=== PATIENT | female | born 1990 | race Caucasian/White ===

== ENCOUNTER → 2023-06-27 11:41 | Outpatient (REF) | payer OTHER, SELFPAY | LOC: RAD 11:41 | PROVIDERS: ATTENDING PHYSICIAN Nurse Practitioner Family; FAMILY PHYSICIAN Internal Medicine | DX: O26.851 Spotting complicating pregnancy, first trimester (principal) | CPT/HCPCS: 76801; 76817 ==

== ENCOUNTER 2023-06-27 12:47 | Emergency (ER) | payer OTHER, SELFPAY ==
[2023-06-27 12:49] VITALS: BP 119/83
[2023-06-27 13:15] LABS: % Basophils 0.4 % (0-2); % Immature Granulocytes 0.1 % (0-0.5); % Monocytes 8.7 % (1.7-9.3); % Neutrophils 61.8 % (42.2-75.2); Absolute Eosinophils 0.2 10^3/uL (0-0.7); Absolute Monocytes 0.7 10^3/uL (0.1-0.6); Absolute Neutrophils 4.7 10^3/uL (1.4-6.5); Hematocrit 39.2 % (37.0-47.0); Hemoglobin 13.2 g/dL (12.0-16.0); Mean Corp Hgb Conc. 33.7 g/dL (33.0-37.0); Mean Corpuscular Hgb 28.8 pg (27.0-31.0); Mean Corpuscular Volume 85.6 fL (81.0-99.0); Mean Platelet Volume 10.4 fL (7.4-10.4); Nucleated Red Blood Cells % 0 %; Platelet Count 243 10^3/uL (130-400); Red Blood Cell Count 4.58 10^6/uL (4.20-5.40); Red Cell Dist. Width 13.2 % (11.5-14.5); White Blood Cell Count 7.6 10^3/uL (4.8-10.8)
--- NOTE | 2023-06-27 14:16 | ED.GENMED ---
History of Present Illness
General
Chief Complaint: Vaginal Bleeding
Time Seen by Provider: 06/27/23 14:15
Travel History
Have you had any contact with someone who has COVID-19?: No
Do you have any symptoms of coronavirus? Fever > 100 degrees, chills, cough, shortness of breath, sore throat, loss of taste or smell, muscle aches, or headache?: No
History of Present Illness
History of Present Illness:
32-year-old female presents the emergency department for evaluation of vaginal bleeding with clots that began last night. G1, P0, currently 8 weeks gestational age. Denies any abdominal or pelvic pain. Bleeding is substantially improved as of
this morning. Went for an outpatient ultrasound at the direction of her TAB CUTTER this morning that showed no intrauterine highly concerning for completed miscarriage. Was directed here by the TAB CUTTER for lab work
Past History
Past History
ED Past Medical History: None
ED Past Surgical History: Other (N/A)
Social History
Tobacco: Non-smoker
Alcohol: Occasional
Personal: Single
Living: with family
Employment: Employed
Review of Systems
Review of Systems
Allergies reviewed?: Yes
All Other Systems: ROS reviewed and negative except as documented in HPI and ROS
Phy Exam
Physical Exam
Physical Exam:
GEN: Well appearing, NAD, WDWN
HEENT: Oral mucosa moist, no scleral icterus
Cardiac: Regular rate
Lung: No respiratory distress, no tachypnea
MSK: No gross deformity or injuries
Skin: Good color, no pallor or jaundice, no rashes
Neuro: AO x3, moves all extremities freely
Psych: Calm, cooperative
Course
Orders/Labs/Results
Orders:
Orders
06/27/23 12:57
Type+Screen Urgent
HCG, Beta Quantitative [Beta HCG Quantitative] Urgent
Is this a screen?: No
06/27/23 12:58
CBC/With Diff [Complete Blood Count/With Diff] Urgent
Abnormal Lab Results
06/27/23
12:58
Absolute Monos (auto) 0.7 H 10^3/uL
(0.1-0.6)
06/27/23 12:58
Vital Signs
Initial and Last Documented VS:
Initial Vital Signs
Temp Pulse Resp BP Pulse Ox
98.4 F 91 18 119/83 100
06/27/23 12:49 06/27/23 12:49 06/27/23 12:49 06/27/23 12:49 06/27/23 12:49
Last Documented Vital Signs
Temp Pulse Resp BP Pulse Ox
98.4 F 91 18 119/83 100
06/27/23 12:49 06/27/23 12:49 06/27/23 12:49 06/27/23 12:49 06/27/23 12:49
MDM/Problems Addressed
MDM/Problems Addressed:
Labs obtained at the request of TAB CUTTER. Her hemoglobin is stable and she reports improved bleeding. The absence of an IUP on ultrasound likely indicates a completed miscarriage. She will follow-up with TAB CUTTER tomorrow regarding further management
as needed. No indication for RhoGAM
*Critical Care Note
Total Time (30-74mins, 75-104mins- exclusive of procedures): Not Applicable
ED Attending Note
-
Portions of this chart may have been created with voice recognition software.� Occasional wrong word or��sound alike� substitutions may have occurred due to the inherent limitations of voice recognition software.
Discharge Plan
Departure
Patient Disposition: Home (Routine Discharge)
Date of Disposition: 06/27/23
Time of Disposition: 15:34
Patient with high blood pressure during this ER visit?: No
Discharge Problem:
Miscarriage
Instructions: Miscarriage (DC)
Referrals:
Rider,Kalie S., MD [Family Provider] -
Interventions
Interventions:
*Risk Screen - Suicide Last Done: 06/27/23 15:12
*General Assessment Last Done: 06/27/23 15:12
*Neglect/Abuse Screening Last Done: 06/27/23 15:12
ED- Fall Risk Assessment Last Done: 06/27/23 15:12
*ED COVID-19 Vaccine History Last Done: 06/27/23 15:12
*Nursing Disposition Last Done: 06/27/23 15:39
ED-Female Genitourinary Assessment Last Done: 06/27/23 15:12
Discharge Date and Time
Discharge Date/Time: 06/27/23 15:41
--- NOTE | 2023-06-27 16:20 | W.PN.UPDATE ---
Update Note
Progress Note Update
32 y/o G1 at 8 wks presents to ED as directed by me for evaluation for abnormal pe=regnancy. pt with bldg this AM, heavier than menses, better now. She felt she passed tissue. Cramps but no abdominal pain. Pt sent for U/S which shows no IUP or
adnexal mass, no pelvic fluid, radiologist felt findings consistent with spontaneous . pt had not done any blood work as ordered by office last week, so no HCG to use to compare, no blood type.
Pt sent to ED for further evaluation to r/o ectopic. Labs show HCG over 30,000. Pt did not want to wait for blood bal=nk to process blood type.
Went to speak to patient.
VSS Afeb
Abdomen-soft, nontender, nondistended, good bowel sounds
Extremities without calf pain
A/p Probable complete spontaneous , less likely ectopic-Pt given vaginal precautions, continue with PNV, call for severe painn or bleeding, to be seen in office tomorrow for follow up, confirm blood tu=ype and order for repeat HCG on
.
== END 2023-06-27 15:41 | disposition home or self-care (01) ==
LOC: EMR 12:47
PROVIDERS: Emergency Medicine; EMERGENCY PHYSICIAN Student in an Organized Health Care Education/Training Program; FAMILY PHYSICIAN Internal Medicine; OTHER PHYSICIAN Obstetrics & Gynecology
DX: O03.9 Complete or unspecified spontaneous abortion without complication (principal); Z88.0 Allergy status to penicillin
CPT/HCPCS: 76801; 76817; 84702; 85025; 86850; 86900; 86901; 99283

== ENCOUNTER → 2023-06-29 11:09 | Outpatient (REF) | payer OTHER, SELFPAY | LOC: REG 11:09 | PROVIDERS: ATTENDING PHYSICIAN Nurse Practitioner Family; FAMILY PHYSICIAN Internal Medicine | DX: Z34.90 Encounter for supervision of normal pregnancy, unspecified, unspecified trimester (principal) | CPT/HCPCS: 36415; 84702 ==

== ENCOUNTER → 2023-07-14 13:11 | Outpatient (REF) | payer OTHER, SELFPAY | LOC: RAD 13:11 | PROVIDERS: ATTENDING PHYSICIAN Obstetrics & Gynecology; FAMILY PHYSICIAN Internal Medicine | DX: O21.1 Hyperemesis gravidarum with metabolic disturbance (principal); O02.9 Abnormal product of conception, unspecified | CPT/HCPCS: 76817 ==